=== PATIENT | female | born 1980 | race Caucasian/White ===

== ENCOUNTER 2018-11-11 10:13 | Emergency (ER) | payer OTHER ==
[~2018-11-11] VITALS: Ht 170.2 cm; Wt 69.8 kg
[2018-11-11] MEDS ORDERED: KETOROLAC 30 MG/ML VIAL. IV ONE (10:30)
[2018-11-11] MEDS ORDERED: diphenhydrAMINE 50 MG/ML VIAL IVP ONE (10:30)
[2018-11-11] MEDS ORDERED: METOCLOPRAMIDE HCL 10 MG/2 ML VIAL. IV ONE (10:30)
[2018-11-11] MEDS ORDERED: IV NORMAL SALINE 1,000ML 1,000 ML IV ONE (10:30)
--- NOTE | 2018-11-11 10:37 | PHYS DOC ---
Adult General Chief Complaint Chief Complaint: HEADACHE HPI HPI 38-year-old female presents with headache for the last 24 hours. She woke up yesterday with a headache. She has taken Tylenol and ibuprofen multiple times in last 24 hours with no improvement at all. Patient does not have a history of headaches. This starts in her occipital region and radiates forward. She describes it as a pressure and pounding. Patient is also been having a lot of increased fatigue for the last few months. She is on B12 injections but it still seems to be getting worse. Patient admits to some intermittent episodes where she knows what she wants to say but cannot get the words out. Her father had a brain tumor. Patient denies fever or chills. Review of Systems Review of Systems Constitutional: Denies fever or chills [] Eyes: Denies change in visual acuity, redness, or eye pain [] HENT: Denies nasal congestion or sore throat [] Respiratory: Denies cough or shortness of breath [] Cardiovascular: No additional information not addressed in HPI [] GI: Denies abdominal pain, nausea, vomiting, bloody stools or diarrhea [] : Denies dysuria or hematuria [] Musculoskeletal: Denies back pain or joint pain [] Integument: Denies rash or skin lesions [] Neurologic: Headache. Denies focal weakness or sensory changes [] Endocrine: Denies polyuria or polydipsia [] All other systems were reviewed and found to be within normal limits, except as documented in this note. Current Medications Current Medications Current Medications Medications (Trade) Dose Ordered Sig/Julee Start Time Stop Time Status Last Admin Dose Admin Diphenhydramine HCl (Benadryl) 25 mg 1X ONCE 11/11/18 10:30 11/11/18 10:31 UNV Ketorolac Tromethamine (Toradol 30mg Vial) 30 mg 1X ONCE 11/11/18 10:30 11/11/18 10:31 UNV Metoclopramide HCl (Reglan Vial) 10 mg 1X ONCE 11/11/18 10:30 11/11/18 10:31 UNV Sodium Chloride 1,000 ml @ 1,000 mls/hr 1X ONCE 11/11/18 10:30 11/11/18 11:29 UNV Allergies Allergies Allergies Coded Allergies Type Severity Reaction Last Updated Verified No Known Drug Allergies 05/27/16 No Physical Exam Physical Exam Constitutional: Well developed, well nourished, no acute distress, non-toxic appearance. [] HENT: Normocephalic, atraumatic, bilateral external ears normal, oropharynx moist, no oral exudates, nose normal. [] Eyes: PERRLA, EOMI, conjunctiva normal, no discharge. [] Neck: Normal range of motion, no tenderness, supple, no stridor. [] Cardiovascular:Heart rate regular rhythm, no murmur [] Lungs & Thorax: Bilateral breath sounds clear to auscultation [] Abdomen: Bowel sounds normal, soft, no tenderness, no masses, no pulsatile masses. [] Skin: Warm, dry, no erythema, no rash. [] Back: No tenderness, no CVA tenderness. [] Extremities: No tenderness, no cyanosis, no clubbing, ROM intact, no edema. [] Neurologic: Alert and oriented X 3, normal motor function, normal sensory function, no focal deficits noted. [] Psychologic: Affect normal, judgement normal, mood normal. [] EKG EKG [] Radiology/Procedures Radiology/Procedures [] Impressions: EXAM: CT Head without IV contrast CLINICAL HISTORY: HEADACHE SINCE YESTERDAY WITH SPEECH DIFFICULITIES. NO HISTORY OF HEADACHES. WO/W PER DOCTOR REQUEST. COMPARISON: None. TECHNIQUE: Routine CT of the head pre and post contrast. Soft tissues and bone windows were reviewed. PQRS compliance statement - One or more of the following individualized dose reduction techniques were utilized for this study: 1. Automated exposure control 2. Adjustment of the mA and/or kV according to patient size 3. Use of iterative reconstruction technique FINDINGS: There is no evidence of hemorrhage, mass or extra-axial fluid collection. Orantes-white differentiation is maintained with no evidence of edema. There is no mass effect or shift of the intracranial structures. The ventricles, basilar cisterns and cortical sulci are normal in size and configuration for the patients stated age. The cerebellum and brainstem are unremarkable. The calvarium demonstrates no evidence of fracture or focal lesion. There is normal aeration of the visualized paranasal sinuses and mastoid air cells. The visualized portions of the orbits are normal. No abnormal enhancement is seen on the postcontrast images. IMPRESSION: 1. Essentially normal pre and postcontrast CT head, specifically no evidence of acute cranial process. Electronically signed by: Darío Walsh MD (11/11/2018 12:06 PM) [facility] DICTATED AND SIGNED BY: DARÍO WALSH MD DATE: 11/11/18 1202 CC: PRACHI ROSE DO; VOLODYMYR TATE Course & Med Decision Making Course & Med Decision Making Pertinent Labs and Imaging studies reviewed. (See chart for details) Patient's head CT with and without contrast is unremarkable. They've given her 1 L normal saline, 25 mg of Benadryl, 10 mg of Reglan, 30 mg of Toradol for her headache. Her headache has improved at this time, but is not completely gone. She is stable for discharge at this time. [] Dragon Disclaimer Dragon Disclaimer This electronic medical record was generated, in whole or in part, using a voice recognition dictation system. Departure Departure: Impression: Primary Impression: Headache Disposition: HOME, SELF-CARE Condition: STABLE Referrals: VOLODYMYR TATE (PCP) Patient Instructions: General Headache Without Cause, [id number] Problem Qualifiers Primary Impression: Headache Headache type: unspecified Headache chronicity pattern: acute headache Intractability: intractable Qualified Codes: R51 - Headache PRACHI ROSE DO Nov 11, 2018 10:37
[2018-11-11] MEDS ORDERED: IOHEXOL 300 MG/ML 75 ML VIAL. IV ONE (10:45)
[2018-11-11 11:11] LABS: BARBITURATES NEG (NEG); BENZODIAZEPINES NEG (NEG); CANNABINOIDS NEG (NEG); COCAINE NEG (NEG); METHADONE NEG (NEG); OPIATES NEG (NEG); PHENCYCLIDINE NEG (NEG)
[2018-11-11 11:12] LABS: AMPHETAMINE/METHAMPHETAMINE NEG (NEG)
[2018-11-11] MEDS ORDERED: CONTRAST GIVEN MC PRN (11:15)
[2018-11-11 11:18] LABS: BACTERIA,URINE MOD /HPF (0-FEW); BILIRUBIN,URINE NEG (NEG); CLARITY,URINE HAZY; COLOR,URINE YELLOW; GLUCOSE,URINE NEG (NEG); NITRITE,URINE NEG (NEG); RBC,URINE RARE /HPF (0-2); SQUAMOUS EPITHELIAL CELL,UR MANY /LPF; UROBILINOGEN,URINE 0.2 mg/dL (0.2 mg/dL)
[2018-11-11 11:32] LABS: BASO # 0.1 x10^3/uL (0.0-0.2); BASO % 1 % (0-3); EOS % 1 % (0-3); HEMATOCRIT 43.9 % (36.0-47.0); HEMOGLOBIN 14.3 g/dL (12.0-15.5); LYMPH # 1.6 x10^3/uL (1.0-4.8); LYMPH % 22 % (24-48); MEAN CORPUSCULAR HEMOGLOBIN 28 pg (25-35); MEAN CORPUSCULAR HGB CONC 33 g/dL (31-37); MEAN CORPUSCULAR VOLUME 85 fL (79-100); MONO # 0.8 x10^3/uL (0.0-1.1); MONO % 11 % (0-9); NEUT % 66 % (31-73); PLATELET COUNT 351 x10^3/uL (140-400); RED BLOOD COUNT 5.19 x10^6/uL (3.50-5.40); RED CELL DISTRIBUTION WIDTH 14.7 % (11.5-14.5); WHITE BLOOD COUNT 7.6 x10^3/uL (4.0-11.0)
[2018-11-11 11:46] LABS: ALBUMIN 3.2 g/dL (3.4-5.0); ALBUMIN/GLOBULIN RATIO 0.9 (1.0-1.7); CALCIUM 7.9 mg/dL (8.5-10.1); CREATININE 0.9 mg/dL (0.6-1.0); GFR 70.5; POTASSIUM 3.7 mmol/L (3.5-5.1); TOTAL BILIRUBIN 0.4 mg/dL (0.2-1.0); TOTAL PROTEIN 6.9 g/dL (6.4-8.2)
--- NOTE | 2018-11-11 12:10 | RAD ---
EXAM: CT Head without IV contrast CLINICAL HISTORY: HEADACHE SINCE YESTERDAY WITH SPEECH DIFFICULITIES. NO HISTORY OF HEADACHES. WO/W PER DOCTOR REQUEST. COMPARISON: None. TECHNIQUE: Routine CT of the head pre and post contrast. Soft tissues and bone windows were reviewed. PQRS compliance statement - One or more of the following individualized dose reduction techniques were utilized for this study: 1. Automated exposure control 2. Adjustment of the mA and/or kV according to patient size 3. Use of iterative reconstruction technique FINDINGS: There is no evidence of hemorrhage, mass or extra-axial fluid collection. Orantes-white differentiation is maintained with no evidence of edema. There is no mass effect or shift of the intracranial structures. The ventricles, basilar cisterns and cortical sulci are normal in size and configuration for the patients stated age. The cerebellum and brainstem are unremarkable. The calvarium demonstrates no evidence of fracture or focal lesion. There is normal aeration of the visualized paranasal sinuses and mastoid air cells. The visualized portions of the orbits are normal. No abnormal enhancement is seen on the postcontrast images. IMPRESSION: 1. Essentially normal pre and postcontrast CT head, specifically no evidence of acute cranial process. Electronically signed by: Darío Munoz MD (11/11/2018 12:06 PM) [facility]
[2018-11-11 12:50] VITALS: BP 108/54
== END 2018-11-11 12:52 | disposition home or self-care (01) ==
LOC: ER 10:13
DX: R51 Headache (principal); R53.83 Other fatigue
CPT/HCPCS: 36415; 70470; 80053; 80307; 81001; 81025; 85025; 87086; 96374; 96375; 99284; J1200; J1885; J2765; Q9967; J7030